=== PATIENT | female | born 1965 | race Caucasian/White ===

== ENCOUNTER 2017-11-08 13:40 | Inpatient (IN) | payer OTHER ==
[2017-11-08 14:20] LABS: ADD MAN DIFF? NO
[2017-11-08 14:25] LABS: BASOPHIL # 0.1 10^3/ul (0.0-0.1); BASOPHILS % 0.7 % (0.0-2.0); EOSINOPHILS % 0.1 % (0.0-7.0); HEMATOCRIT 28.4 % (37.0-47.0); HEMOGLOBIN 9.5 g/dl (12.0-16.0); LYMPHOCYTES # 0.9 10^3/ul (0.8-2.9); LYMPHOCYTES % 10.3 % (15.0-51.0); MEAN CORPUSCULAR HEMOGLOBIN 30.7 pg (29.0-33.0); MEAN CORPUSCULAR HGB CONC 33.5 g/dl (32.0-37.0); MEAN CORPUSCULAR VOLUME 91.9 fl (82.0-101.0); MONOCYTE # 0.5 10^3/ul (0.3-0.9); NEUTROPHIL # 7.4 10^3/ul (1.6-7.5); NEUTROPHILS % 82.6 % (39.0-77.0); PLATELET COUNT 180 10^3/UL (140-415); RED BLOOD COUNT 3.09 10^6/ul (4.20-5.40); RED CELL DISTRIBUTION WIDTH 12.7 % (11.5-14.5)
[2017-11-08 14:40] LABS: LACTIC ACID 1.5 mmol/L (0.5-2.0)
[2017-11-08 14:42] LABS: ALANINE AMINOTRANSFERASE 27 IU/L (13-69); ALBUMIN 3.9 g/dl (3.3-4.9); ALBUMIN/GLOBULIN RATIO 1.11; ALKALINE PHOSPHATASE 117 IU/L (42-121); ANION GAP 15 (8-16); ASPARTATE AMINO TRANSFERASE 26 IU/L (15-46); BILIRUBIN,INDIRECT 1.6 mg/dl (0-1.1); BILIRUBIN,TOTAL 1.6 mg/dl (0.2-1.3); BLOOD UREA NITROGEN 25 mg/dl (7-20); CALCIUM 8.9 mg/dl (8.4-10.2); CARBON DIOXIDE 24 mmol/L (21-31); CHLORIDE 104 mmol/L (97-110); CREATININE 1.45 mg/dl (0.44-1.00); GLUCOSE 161 mg/dl (70-220); POTASSIUM 4.6 mmol/L (3.5-5.1); SODIUM 138 mmol/L (135-144); TOTAL PROTEIN 7.4 g/dl (6.1-8.1)
[2017-11-08 14:44] LABS: INR 0.98; PROTIME 13.1 Sec (11.9-14.9)
[2017-11-08 14:45] LABS: PARTIAL THROMBOPLASTIN TIME 29.2 Sec (25.0-35.0)
[2017-11-08] MEDS: SODIUM CHLORIDE 0.9% 1L BAG IV* (14:46)
[2017-11-08 14:53] LABS: TROPONIN-I < 0.010 ng/ml (0.000-0.120)
[2017-11-08 15:34] LABS: ADD UMIC YES; UR ASCORBIC ACID NEGATIVE (NEGATIVE); UR BACTERIA MANY /HPF (NONE SEEN); UR BILIRUBIN (Dip) NEGATIVE (NEGATIVE); UR BLOOD (Dip) 1+ mg/dL (NEGATIVE); UR CLARITY TURBID (CLEAR); UR COLOR YELLOW (YELLOW); UR GLUCOSE (Dip) NEGATIVE (NEGATIVE); UR KETONES (Dip) NEGATIVE (NEGATIVE); UR LEUKOCYTE ESTERASE (Dip) 3+ Leu/ul (NEGATIVE); UR NITRITE (Dip) POSITIVE (NEGATIVE); UR NONSQUAMOUS EPITHELIAL CELL 1 /HPF (NONE SEEN); UR RBC 17 /HPF (0-5); UR SPECIFIC GRAVITY (Dip) 1.009 (1.003-1.030); UR SQUAMOUS EPITHELIAL CELL FEW /HPF (FEW); UR TOTAL PROTEIN (Dip) 2+ mg/dl (NEGATIVE); UR UROBILINOGEN (Dip) NEGATIVE (NEGATIVE); UR WBC > 182 /HPF (0-5)
[2017-11-08 16:40] LABS: LACTIC ACID 0.7 mmol/L (0.5-2.0)
[2017-11-08] MEDS: CEFEPIME 1GM/50 ML (PMX) 50 ML IVPB (16:41)
[2017-11-08] MEDS: FENTAnyl 50 MCG/ML VIAL IV (17:06)
[2017-11-08] MEDS: VANCOMYCIN 1 GM (PMX) 250 ML IVPB (17:27)
[2017-11-08 18:30] LABS: LACTIC ACID 1.2 mmol/L (0.5-2.0)
[2017-11-08] MEDS: ONDANSETRON 4 MG INJ IV (18:37)
[2017-11-08] MEDS: ACETAMINOPHEN 325 MG TAB PO (18:37)
[2017-11-08] MEDS: ALBUTEROL HFA 8 GM INHALER INH ×2 (19:00→23:00)
[2017-11-08] MEDS ORDERED: NACL 0.9% 3 ML SYG IV (19:00)
[2017-11-08] MEDS ORDERED: NITROGLYCERIN (SL) 0.4 MG TAB SL (19:00)
[2017-11-08] MEDS: SOD CHLORIDE 0.9% 1,000 ML IV (19:00)
[2017-11-08] MEDS ORDERED: hydrALAzine 20 MG INJ IV (19:00)
[2017-11-08] MEDS ORDERED: MAGNESIUM HYDROXIDE 30ML CUP PO (19:00)
[2017-11-08] MEDS ORDERED: VANCOMYCIN IV PER PHARMACY XX (19:00)
[2017-11-08] MEDS ORDERED: NA PHOSPHATE/BIPHOS 133 ML ENEMA PR (19:00)
[2017-11-08] MEDS ORDERED: LORAZEPAM 2 MG INJ IV (19:00)
[2017-11-08] MEDS ORDERED: morphine 2 MG INJ IV (19:00)
[2017-11-08] MEDS ORDERED: DOCUSATE SODIUM 100 MG CAP PO (19:00)
[2017-11-08 19:13] LABS: FREE T4 (FREE THYROXINE) 0.98 ng/dl (0.64-1.79)
[2017-11-08 20:07] LABS: PROTEIN/CREAT RATIO 2.28 RATIO
[2017-11-08 20:11] LABS: CREATININE,URINE RANDOM 56.54 mg/dl (20-320)
[2017-11-08 20:12] LABS: SODIUM,URINE RANDOM 83 mmol/L (30-90)
[2017-11-08] MEDS: HEPARIN 5,000 UNIT/0.5 ML VIAL SC (21:00)
[2017-11-08] MEDS: PIPER-TAZO 2.25 GM (PMX) 50 ML IVPB (21:10)
[2017-11-08 21:21] LABS: INR 1.15; PROTIME 14.9 Sec (11.9-14.9); PT RATIO 1.2
[2017-11-08 21:22] LABS: PARTIAL THROMBOPLASTIN TIME 31.1 Sec (25.0-35.0)
[2017-11-08] MEDS: PREGABALIN 75 MG CAP PO (22:26)
[2017-11-08] MEDS: MIDODRINE 5 MG TAB PO (22:30)
[2017-11-08] MEDS: INSULIN GLARGINE [LANTus] (100 UNITS/ML) SYG SC (22:30)
[2017-11-08] MEDS: CASPOFUNGIN 50 MG in SOD CHLORIDE 0.9% 250 ML IVPB (23:24)
[2017-11-09] MEDS ORDERED: PIPER-TAZO 3.375 GM IV (PMX) 100 ML IVPB
[2017-11-09] MEDS: PIPER-TAZO 2.25 GM (PMX) 50 ML IVPB ×5 (02:32→23:23)
[2017-11-09] MEDS: HYDROCODONE/APAP (5/325) TAB PO (02:38)
[2017-11-09] MEDS: ONDANSETRON 4 MG INJ IV ×2 (03:14→20:30)
[2017-11-09] MEDS: ALBUTEROL HFA 8 GM INHALER INH ×5 (03:55→23:23)
[2017-11-09] MEDS: PANTOPRAZOLE 40 MG INJ IV (06:16)
[2017-11-09] MEDS: SOD CHLORIDE 0.9% 1,000 ML IV ×2 (06:16→16:09)
[2017-11-09 06:33] LABS: ADD MAN DIFF? NO
[2017-11-09 06:35] LABS: WHITE BLOOD COUNT 5.6 10^3/ul (4.8-10.8)
[2017-11-09 06:35] LABS: ABNORMAL IP MESSAGE 1; BASOPHIL # 0.1 10^3/ul (0.0-0.1); BASOPHILS % 0.9 % (0.0-2.0); HEMATOCRIT 25.5 % (37.0-47.0); HEMOGLOBIN 8.4 g/dl (12.0-16.0); LYMPHOCYTES # 0.5 10^3/ul (0.8-2.9); LYMPHOCYTES % 8.4 % (15.0-51.0); MEAN CORPUSCULAR HEMOGLOBIN 30.8 pg (29.0-33.0); MEAN CORPUSCULAR HGB CONC 32.9 g/dl (32.0-37.0); MEAN CORPUSCULAR VOLUME 93.4 fl (82.0-101.0); MEAN PLATELET VOLUME 9.5 fl (7.4-10.4); MONOCYTE # 0.3 10^3/ul (0.3-0.9); MONOCYTES % 4.5 % (0.0-11.0); NEUTROPHIL # 4.8 10^3/ul (1.6-7.5); NEUTROPHILS % 85.7 % (39.0-77.0); PLATELET COUNT 157 10^3/UL (140-415); RED BLOOD COUNT 2.73 10^6/ul (4.20-5.40); RED CELL DISTRIBUTION WIDTH 12.9 % (11.5-14.5)
[2017-11-09 06:48] LABS: POSITIVE DIFF @See below
[2017-11-09 06:55] LABS: CHOLESTEROL 105 mg/dl (100-200); URIC ACID 4.6 mg/dl (3.1-7.9)
[2017-11-09 06:55] LABS: CHOL/HDL RATIO 2.5 RATIO; CREATINE KINASE 44 IU/L (23-200); HDL CHOLESTEROL 42 mg/dl (37-92); LDL CHOLESTEROL,CALCULATED 45 mg/dl; TRIGLYCERIDES 90 mg/dl (0-149)
[2017-11-09 07:23] LABS: HEMOGLOBIN A1C 11.1 % (0-5.9)
[2017-11-09 07:51] LABS: ANION GAP 10 (8-16); BLOOD UREA NITROGEN 21 mg/dl (7-20); CARBON DIOXIDE 19 mmol/L (21-31); CHLORIDE 115 mmol/L (97-110); CREATININE 1.25 mg/dl (0.44-1.00); GLUCOSE 145 mg/dl (70-220); PHOSPHORUS 3.3 mg/dl (2.5-4.9); SODIUM 140 mmol/L (135-144)
[2017-11-09 07:52] LABS: MAGNESIUM 0.9 mg/dl (1.7-2.5)
[2017-11-09] MEDS: ACETAMINOPHEN 325 MG TAB PO (08:11)
[2017-11-09] MEDS: MIRTAZAPINE 15 MG TAB PO (08:42)
[2017-11-09] MEDS: FERROUS SULFATE (EC) 325 MG TAB PO (08:43)
[2017-11-09] MEDS: HEPARIN 5,000 UNIT/0.5 ML VIAL SC ×2 (08:47→20:33)
[2017-11-09] MEDS: PREGABALIN 75 MG CAP PO ×2 (09:19→20:30)
[2017-11-09] MEDS: MAGNESIUM SULFATE 3 GM in DEXTROSE 5% 100 ML IVPB (09:56)
[2017-11-09] MEDS: INSULIN GLARGINE [LANTus] (100 UNITS/ML) SYG SC ×2 (10:51→20:33)
[2017-11-09] MEDS ORDERED: GLUCOSE GEL 15 GRAM TUBE BUCCAL (12:00)
[2017-11-09] MEDS ORDERED: GLUCOSE GEL 15 GRAM TUBE PO ×2 (12:00)
[2017-11-09] MEDS ORDERED: GLUCAGON 1 MG INJ IM (12:00)
[2017-11-09] MEDS ORDERED: DEXTROSE 50% 50 ML SYRINGE IV ×2 (12:00)
[2017-11-09] MEDS: INSULIN ASPART [NOVOLOG] 3 ML PEN SC ×3 (12:34→20:27)
[2017-11-09] MEDS: VORICONAZOLE 200 MG TAB PO (17:14)
[2017-11-09] MEDS ORDERED: D5W-0.45 NACL + KCL 10 MEQ 1,000 ML IV (18:30)
[2017-11-09] MEDS: D5W-0.45 NACL + KCL 10 MEQ 1,000 ML IV (20:30)
[2017-11-10] MEDS: VORICONAZOLE 200 MG TAB PO ×2 (01:06→08:34)
[2017-11-10] MEDS: ACCU-CHEK XX (02:00)
[2017-11-10] MEDS: ALBUTEROL HFA 8 GM INHALER INH ×6 (03:00→23:21)
[2017-11-10 05:54] LABS: WHITE BLOOD COUNT 3.7 10^3/ul (4.8-10.8)
[2017-11-10 05:54] LABS: MEAN CORPUSCULAR HEMOGLOBIN 30.5 pg (29.0-33.0); MEAN CORPUSCULAR HGB CONC 33.3 g/dl (32.0-37.0); MEAN CORPUSCULAR VOLUME 91.6 fl (82.0-101.0); MEAN PLATELET VOLUME 9.7 fl (7.4-10.4); PLATELET COUNT 141 10^3/UL (140-415); RED BLOOD COUNT 2.62 10^6/ul (4.20-5.40)
[2017-11-10] MEDS: PANTOPRAZOLE 40 MG INJ IV (06:01)
[2017-11-10] MEDS: PIPER-TAZO 2.25 GM (PMX) 50 ML IVPB ×4 (06:02→23:21)
[2017-11-10 06:12] LABS: ANION GAP 9 (8-16); BLOOD UREA NITROGEN 13 mg/dl (7-20); CALCIUM 8.2 mg/dl (8.4-10.2); CARBON DIOXIDE 19 mmol/L (21-31); CHLORIDE 116 mmol/L (97-110); CREATININE 1.33 mg/dl (0.44-1.00); GLUCOSE 89 mg/dl (70-220); POTASSIUM 3.6 mmol/L (3.5-5.1); SODIUM 140 mmol/L (135-144)
[2017-11-10 06:17] LABS: ADD MAN DIFF? YES; POSITIVE DIFF @See below
[2017-11-10 06:42] LABS: PHOSPHORUS 3.5 mg/dl (2.5-4.9)
[2017-11-10 06:42] LABS: MAGNESIUM 1.6 mg/dl (1.7-2.5)
[2017-11-10] MEDS: INSULIN ASPART [NOVOLOG] 3 ML PEN SC ×4 (07:55→21:00)
[2017-11-10] MEDS: D5W-0.45 NACL + KCL 10 MEQ 1,000 ML IV ×2 (08:34→21:00)
[2017-11-10] MEDS: MIRTAZAPINE 15 MG TAB PO (08:34)
[2017-11-10] MEDS: FERROUS SULFATE (EC) 325 MG TAB PO (08:34)
[2017-11-10] MEDS: ONDANSETRON 4 MG INJ IV (08:35)
[2017-11-10] MEDS: HEPARIN 5,000 UNIT/0.5 ML VIAL SC ×2 (08:38→21:11)
[2017-11-10] MEDS: ACETAMINOPHEN 325 MG TAB PO (08:40)
[2017-11-10] MEDS: PREGABALIN 75 MG CAP PO ×2 (08:57→21:09)
[2017-11-10 10:26] LABS: BAND NEUTROPHILS #M 0.8 10^3/ul (0.0-0.6); BAND NEUTROPHILS % (M) 24 % (0-4); EOSINOPHILS % (M) 1 % (0-7); LYMPHOCYTES #M 0.9 10^3/ul (0.8-2.9); LYMPHOCYTES % (M) 26 % (15-51); MONOCYTE #M 0.1 10^3/ul (0.3-0.9); MONOCYTES % (M) 5 % (0-11); PLATELET ESTIMATE NORMAL; REACTIVE LYMPHOCYTES% (M) 2 % (0-0); SEG NEUT #M 1.6 10^3/ul (1.6-7.5); SEGMENTED NEUTROPHILS (M) % 42 % (39-77); SMUDGE%M 17 % (0-0)
[2017-11-10] MEDS ORDERED: TRIMETHOBENZAMIDE 100 MG/ML VIAL IM (11:00)
[2017-11-10] MEDS ORDERED: ONDANSETRON INJ 8 MG in SOD CHLORIDE 0.9% 50 ML IV (11:30)
[2017-11-10] MEDS: MAGNESIUM SULFATE 2 GM/50 ML 50 ML IVPB (11:42)
[2017-11-10] MEDS ORDERED: ONDANSETRON 4 MG INJ IV (13:00)
[2017-11-10] MEDS ORDERED: VANCOMYCIN 750 MG in SOD CHLORIDE 0.9% 150 ML IVPB (17:00)
[2017-11-10] MEDS: INSULIN GLARGINE [LANTus] (100 UNITS/ML) SYG SC (21:11)
[2017-11-11] MEDS: ACCU-CHEK XX (02:00)
[2017-11-11] MEDS: ALBUTEROL HFA 8 GM INHALER INH ×6 (03:15→23:00)
[2017-11-11] MEDS: PANTOPRAZOLE 40 MG INJ IV (05:17)
[2017-11-11] MEDS: PIPER-TAZO 2.25 GM (PMX) 50 ML IVPB ×2 (05:17→11:47)
[2017-11-11] MEDS: HYDROCODONE/APAP (5/325) TAB PO (05:20)
[2017-11-11 06:40] LABS: ADD MAN DIFF? NO
[2017-11-11 06:42] LABS: BASOPHILS % 0.5 % (0.0-2.0); EOSINOPHILS # 0.1 10^3/ul (0.0-0.5); EOSINOPHILS % 2.3 % (0.0-7.0); HEMATOCRIT 23.7 % (37.0-47.0); HEMOGLOBIN 7.8 g/dl (12.0-16.0); LYMPHOCYTES # 1.6 10^3/ul (0.8-2.9); LYMPHOCYTES % 41.1 % (15.0-51.0); MEAN CORPUSCULAR HEMOGLOBIN 30.5 pg (29.0-33.0); MEAN CORPUSCULAR HGB CONC 32.9 g/dl (32.0-37.0); MEAN CORPUSCULAR VOLUME 92.6 fl (82.0-101.0); MEAN PLATELET VOLUME 9.6 fl (7.4-10.4); MONOCYTE # 0.4 10^3/ul (0.3-0.9); MONOCYTES % 10.7 % (0.0-11.0); NEUTROPHIL # 1.8 10^3/ul (1.6-7.5); NEUTROPHILS % 44.9 % (39.0-77.0); PLATELET COUNT 176 10^3/UL (140-415); RED BLOOD COUNT 2.56 10^6/ul (4.20-5.40); RED CELL DISTRIBUTION WIDTH 13.2 % (11.5-14.5)
[2017-11-11 06:42] LABS: WHITE BLOOD COUNT 3.9 10^3/ul (4.8-10.8)
[2017-11-11 07:11] LABS: MAGNESIUM 1.8 mg/dl (1.7-2.5)
[2017-11-11 07:11] LABS: PHOSPHORUS 3.4 mg/dl (2.5-4.9)
[2017-11-11 07:12] LABS: ANION GAP 11 (8-16); BLOOD UREA NITROGEN 9 mg/dl (7-20); CALCIUM 8.8 mg/dl (8.4-10.2); CARBON DIOXIDE 20 mmol/L (21-31); CHLORIDE 114 mmol/L (97-110); CREATININE 1.35 mg/dl (0.44-1.00); GLUCOSE 172 mg/dl (70-220); POTASSIUM 3.4 mmol/L (3.5-5.1); SODIUM 142 mmol/L (135-144)
[2017-11-11] MEDS: INSULIN ASPART [NOVOLOG] 3 ML PEN SC ×4 (07:53→20:55)
[2017-11-11] MEDS: MIRTAZAPINE 15 MG TAB PO (09:06)
[2017-11-11] MEDS: FERROUS SULFATE (EC) 325 MG TAB PO (09:06)
[2017-11-11] MEDS: INSULIN GLARGINE [LANTus] (100 UNITS/ML) SYG SC ×2 (09:09→20:44)
[2017-11-11] MEDS: HEPARIN 5,000 UNIT/0.5 ML VIAL SC ×2 (09:09→20:44)
[2017-11-11] MEDS: D5W-0.45 NACL + KCL 10 MEQ 1,000 ML IV ×2 (09:14→22:17)
[2017-11-11] MEDS: PREGABALIN 75 MG CAP PO (09:14)
[2017-11-11] MEDS: GUAIFENESIN 20 MG/ML 5ML CUP PO (11:47)
[2017-11-11] MEDS: CEPASTAT LOZENGE MT ×2 (13:24→19:44)
[2017-11-11] MEDS: ALBUTEROL/IPRATROPIUM (NEB) 3 ML AMP HHN (13:38)
[2017-11-11] MEDS ORDERED: morphine LIQ (10 MG/5 ML) CUP PO (16:30)
[2017-11-11] MEDS: LEVOFLOXACIN 500MG/D5W (PMX) 100 ML IVPB (18:30)
[2017-11-11] MEDS: ONDANSETRON 4 MG INJ IV (22:19)
[2017-11-12] MEDS: ACCU-CHEK XX (01:43)
[2017-11-12] MEDS: ALBUTEROL HFA 8 GM INHALER INH ×6 (03:00→23:00)
[2017-11-12] MEDS: PANTOPRAZOLE 40 MG INJ IV (05:27)
[2017-11-12 07:34] LABS: ADD MAN DIFF? NO
[2017-11-12 07:41] LABS: BASOPHILS % 0.7 % (0.0-2.0); EOSINOPHILS # 0.1 10^3/ul (0.0-0.5); HEMATOCRIT 22.1 % (37.0-47.0); HEMOGLOBIN 7.1 g/dl (12.0-16.0); MEAN CORPUSCULAR HEMOGLOBIN 30.3 pg (29.0-33.0); MEAN CORPUSCULAR HGB CONC 32.1 g/dl (32.0-37.0); MEAN CORPUSCULAR VOLUME 94.4 fl (82.0-101.0); MEAN PLATELET VOLUME 9.7 fl (7.4-10.4); MONOCYTE # 0.4 10^3/ul (0.3-0.9); MONOCYTES % 9.7 % (0.0-11.0); NEUTROPHIL # 1.9 10^3/ul (1.6-7.5); NEUTROPHILS % 42.1 % (39.0-77.0); PLATELET COUNT 165 10^3/UL (140-415); RED BLOOD COUNT 2.34 10^6/ul (4.20-5.40); RED CELL DISTRIBUTION WIDTH 13.6 % (11.5-14.5)
[2017-11-12 07:41] LABS: WHITE BLOOD COUNT 4.4 10^3/ul (4.8-10.8)
[2017-11-12 08:03] LABS: ANION GAP 10 (8-16); BLOOD UREA NITROGEN 11 mg/dl (7-20); CALCIUM 8.4 mg/dl (8.4-10.2); CARBON DIOXIDE 20 mmol/L (21-31); CHLORIDE 115 mmol/L (97-110); GLUCOSE 157 mg/dl (70-220); POTASSIUM 4.5 mmol/L (3.5-5.1); SODIUM 140 mmol/L (135-144)
[2017-11-12] MEDS: INSULIN ASPART [NOVOLOG] 3 ML PEN SC ×4 (08:38→20:35)
[2017-11-12] MEDS: PREGABALIN 75 MG CAP PO (08:40)
[2017-11-12] MEDS: FERROUS SULFATE (EC) 325 MG TAB PO (08:40)
[2017-11-12] MEDS: MIRTAZAPINE 15 MG TAB PO (08:40)
[2017-11-12] MEDS: HEPARIN 5,000 UNIT/0.5 ML VIAL SC ×2 (08:45→20:41)
[2017-11-12] MEDS: D5W-0.45 NACL + KCL 10 MEQ 1,000 ML IV ×2 (12:17→23:14)
[2017-11-12] MEDS: INSULIN GLARGINE [LANTus] (100 UNITS/ML) SYG SC ×2 (12:21→20:41)
[2017-11-12] MEDS: LEVOFLOXACIN 250MG/D5W (PMX) 50 ML IVPB (15:58)
[2017-11-12] MEDS: L ACIDOPHIL/B LACTIS/B LONGUM CAPSULE PO ×2 (15:58→23:15)
[2017-11-13 01:49] LABS: AHG CROSSMATCH 1 1
[2017-11-13] MEDS: ACCU-CHEK XX (02:00)
[2017-11-13] MEDS: SOD CHLORIDE 0.9% 250 ML IV* (02:03)
[2017-11-13] MEDS: ALBUTEROL HFA 8 GM INHALER INH ×4 (03:00→15:00)
[2017-11-13] MEDS: PANTOPRAZOLE 40 MG INJ IV (05:26)
[2017-11-13] MEDS: L ACIDOPHIL/B LACTIS/B LONGUM CAPSULE PO (08:12)
[2017-11-13] MEDS: MIRTAZAPINE 15 MG TAB PO (08:12)
[2017-11-13] MEDS: PREGABALIN 75 MG CAP PO (08:12)
[2017-11-13] MEDS: FERROUS SULFATE (EC) 325 MG TAB PO (08:12)
[2017-11-13 08:18] LABS: ADD MAN DIFF? NO; BASOPHILS % 0.8 % (0.0-2.0); EOSINOPHILS # 0.1 10^3/ul (0.0-0.5); EOSINOPHILS % 2.3 % (0.0-7.0); HEMATOCRIT 30.6 % (37.0-47.0); HEMOGLOBIN 9.7 g/dl (12.0-16.0); LYMPHOCYTES # 2.5 10^3/ul (0.8-2.9); LYMPHOCYTES % 47.5 % (15.0-51.0); MEAN CORPUSCULAR HEMOGLOBIN 29.7 pg (29.0-33.0); MEAN CORPUSCULAR HGB CONC 31.7 g/dl (32.0-37.0); MEAN CORPUSCULAR VOLUME 93.6 fl (82.0-101.0); MEAN PLATELET VOLUME 9.5 fl (7.4-10.4); MONOCYTE # 0.6 10^3/ul (0.3-0.9); MONOCYTES % 11.1 % (0.0-11.0); NEUTROPHILS % 37.9 % (39.0-77.0); PLATELET COUNT 182 10^3/UL (140-415); RED BLOOD COUNT 3.27 10^6/ul (4.20-5.40); RED CELL DISTRIBUTION WIDTH 13.3 % (11.5-14.5)
[2017-11-13 08:18] LABS: WHITE BLOOD COUNT 5.3 10^3/ul (4.8-10.8)
[2017-11-13 08:41] LABS: ANION GAP 10 (8-16); BLOOD UREA NITROGEN 11 mg/dl (7-20); CALCIUM 8.7 mg/dl (8.4-10.2); CARBON DIOXIDE 22 mmol/L (21-31); CHLORIDE 113 mmol/L (97-110); CREATININE 1.13 mg/dl (0.44-1.00); GLUCOSE 174 mg/dl (70-220); POTASSIUM 4.6 mmol/L (3.5-5.1); SODIUM 140 mmol/L (135-144)
[2017-11-13] MEDS: INSULIN GLARGINE [LANTus] (100 UNITS/ML) SYG SC (08:41)
[2017-11-13] MEDS: INSULIN ASPART [NOVOLOG] 3 ML PEN SC ×2 (08:42→11:52)
[2017-11-13] MEDS: HEPARIN 5,000 UNIT/0.5 ML VIAL SC (08:42)
[2017-11-13] MEDS: D5W-0.45 NACL + KCL 10 MEQ 1,000 ML IV (11:30)
[2017-11-13] MEDS: ACETAMINOPHEN 325 MG TAB PO (11:56)
[2017-11-13] MEDS: LOPERAMIDE 2 MG CAP PO (13:22)
== END 2017-11-13 16:41 | disposition home or self-care (01) | DRG 871 ==
LOC: TEL 18:07 → E/R 13:40 → TEL 11-09 21:14
PROVIDERS: Hospitalist
DX: A41.9 Sepsis, unspecified organism (principal); N17.0 Acute kidney failure with tubular necrosis; N39.0 Urinary tract infection, site not specified; E11.40 Type 2 diabetes mellitus with diabetic neuropathy, unspecified; J44.9 Chronic obstructive pulmonary disease, unspecified; I10 Essential (primary) hypertension; E78.5 Hyperlipidemia, unspecified; D64.9 Anemia, unspecified; E80.6 Other disorders of bilirubin metabolism; B96.4 Proteus (mirabilis) (morganii) as the cause of diseases classified elsewhere; Z85.3 Personal history of malignant neoplasm of breast; Z79.4 Long term (current) use of insulin
CPT/HCPCS: 36415; 36430; 71045; 76775; 80048; 80053; 80061; 81001; 81003; 82550; 82570; 82962; 83036; 83605; 83735; 84100; 84300; 84439; 84443; 84484; 84560; 85025; 85610; 85730; 86850; 86900; 86901; 86920; 87040; 87086; 89190; 92610; 93005; 94640; 96365; 96367; 97116; 97162; 99291-25

== ENCOUNTER 2018-01-12 12:15 | Emergency (ER) | payer OTHER ==
[2018-01-12] MEDS: IBUPROFEN 800 MG TAB PO (13:18)
== END 2018-01-12 13:39 | disposition home or self-care (01) ==
LOC: FTE 12:15
DX: M25.572 Pain in left ankle and joints of left foot (principal); J44.9 Chronic obstructive pulmonary disease, unspecified; J45.909 Unspecified asthma, uncomplicated; I10 Essential (primary) hypertension; E11.9 Type 2 diabetes mellitus without complications; Z79.4 Long term (current) use of insulin; Z85.3 Personal history of malignant neoplasm of breast
CPT/HCPCS: 73610; 99283-25

== ENCOUNTER 2018-02-24 06:25 | Emergency (ER) | payer OTHER ==
[2018-02-24 07:02] LABS: URINE BLOOD (Dip) POC 3+ (NEGATIVE); URINE GLUCOSE (Dip) POC Negative (NEGATIVE); URINE KETONES (Dip) POC Negative (NEGATIVE); URINE LEUKOCYTE EST (Dip) POC 2+ (NEGATIVE); URINE NITRITE (Dip) POC Negative (NEGATIVE); URINE TOTAL PROTEIN POC 3+ (NEGATIVE)
[2018-02-24] MEDS: CEFTRIAXONE 1 GM/50 ML (PMX) 50 ML IVPB (07:25)
[2018-02-24] MEDS: PHENAZOPYRIDINE 100 MG TAB PO (07:26)
[2018-02-24] MEDS: SOD CHLORIDE 0.9% 1,000 ML IV (07:26)
[2018-02-24 07:34] LABS: ADD MAN DIFF? NO
[2018-02-24 07:36] LABS: BASOPHIL # 0.1 10^3/ul (0.0-0.1); BASOPHILS % 1.1 % (0.0-2.0); EOSINOPHILS # 0.2 10^3/ul (0.0-0.5); EOSINOPHILS % 2.4 % (0.0-7.0); HEMATOCRIT 29.4 % (37.0-47.0); LYMPHOCYTES # 2.2 10^3/ul (0.8-2.9); LYMPHOCYTES % 27.2 % (15.0-51.0); MEAN CORPUSCULAR HEMOGLOBIN 31.4 pg (29.0-33.0); MEAN CORPUSCULAR VOLUME 92.5 fl (82.0-101.0); MONOCYTE # 0.8 10^3/ul (0.3-0.9); MONOCYTES % 9.5 % (0.0-11.0); NEUTROPHIL # 4.7 10^3/ul (1.6-7.5); NEUTROPHILS % 59.4 % (39.0-77.0); PLATELET COUNT 228 10^3/UL (140-415); RED BLOOD COUNT 3.18 10^6/ul (4.20-5.40); RED CELL DISTRIBUTION WIDTH 11.8 % (11.5-14.5)
[2018-02-24 07:57] LABS: ALANINE AMINOTRANSFERASE 27 IU/L (13-69); ALBUMIN 4.1 g/dl (3.3-4.9); ALBUMIN/GLOBULIN RATIO 1.41; ALKALINE PHOSPHATASE 93 IU/L (42-121); ANION GAP 12 (5-13); ASPARTATE AMINO TRANSFERASE 22 IU/L (15-46); BILIRUBIN,INDIRECT 0.5 mg/dl (0-1.1); BILIRUBIN,TOTAL 0.5 mg/dl (0.2-1.3); BLOOD UREA NITROGEN 23 mg/dl (7-20); CALCIUM 9.2 mg/dl (8.4-10.2); CARBON DIOXIDE 26 mmol/L (21-31); CHLORIDE 106 mmol/L (97-110); CREATININE 1.77 mg/dl (0.44-1.00); Estimated GFR 30 mL/min (>60); GLUCOSE 133 mg/dl (70-220); POTASSIUM 4.1 mmol/L (3.5-5.1); SODIUM 144 mmol/L (135-144)
[2018-02-24 08:42] LABS: LACTIC ACID 0.9 mmol/L (0.5-2.0)
[2018-02-24] MEDS: ACETAMINOPHEN 325 MG TAB PO (09:16)
== END 2018-02-24 09:50 | disposition home or self-care (01) ==
LOC: FTE 06:25
DX: N12 Tubulo-interstitial nephritis, not specified as acute or chronic (principal); R40.2412 Glasgow coma scale score 13-15, at arrival to emergency department; J44.9 Chronic obstructive pulmonary disease, unspecified; E11.9 Type 2 diabetes mellitus without complications; I10 Essential (primary) hypertension; J45.909 Unspecified asthma, uncomplicated; Z79.4 Long term (current) use of insulin
CPT/HCPCS: 36415; 80053; 81003; 81025; 83605; 85025; 87040; 87086; 96361; 96365; 99284-25

== ENCOUNTER 2018-08-19 15:20 | Emergency (ER) | payer OTHER ==
[2018-08-19 16:16] LABS: URINE PH (Dip) POC 5.5 (5.0-8.5)
[2018-08-19 16:16] LABS: URINE BLOOD (Dip) POC 2+ (NEGATIVE); URINE GLUCOSE (Dip) POC Negative (NEGATIVE); URINE KETONES (Dip) POC Negative (NEGATIVE); URINE LEUKOCYTE EST (Dip) POC 3+ (NEGATIVE); URINE NITRITE (Dip) POC Negative (NEGATIVE); URINE TOTAL PROTEIN POC 1+ (NEGATIVE)
[2018-08-19] MEDS: ACETAMINOPHEN 500 MG TAB PO (16:25)
== END 2018-08-19 18:03 | disposition home or self-care (01) ==
LOC: FTE 15:20
DX: M25.572 Pain in left ankle and joints of left foot (principal); N39.0 Urinary tract infection, site not specified; E11.9 Type 2 diabetes mellitus without complications; I10 Essential (primary) hypertension; J44.9 Chronic obstructive pulmonary disease, unspecified; Z79.4 Long term (current) use of insulin
CPT/HCPCS: 73610; 81003; 81025; 99283-25

== ENCOUNTER 2018-08-21 17:38 | Emergency (ER) | payer OTHER ==
[2018-08-21] MEDS: HYDROCODONE/APAP (5/325) TAB PO (18:27)
== END 2018-08-21 22:17 | disposition home or self-care (01) ==
LOC: FTE 17:38
DX: S92.025A Nondisplaced fracture of anterior process of left calcaneus, initial encounter for closed fracture (principal); E11.9 Type 2 diabetes mellitus without complications; I10 Essential (primary) hypertension; J44.9 Chronic obstructive pulmonary disease, unspecified; W01.0XXA Fall on same level from slipping, tripping and stumbling without subsequent striking against object, initial encounter; Y92.9 Unspecified place or not applicable; Z79.4 Long term (current) use of insulin
CPT/HCPCS: 29505; 73610; 93971; 99284-25

== ENCOUNTER 2018-09-30 21:21 | Emergency (ER) | payer OTHER ==
[2018-09-30 21:49] LABS: ADD MAN DIFF? NO; BASOPHIL # 0.2 10^3/ul (0.0-0.1); BASOPHILS % 1.6 % (0.0-2.0); EOSINOPHILS # 0.5 10^3/ul (0.0-0.5); EOSINOPHILS % 5.3 % (0.0-7.0); HEMATOCRIT 28.6 % (37.0-47.0); HEMOGLOBIN 9.6 g/dl (12.0-16.0); LYMPHOCYTES # 4.4 10^3/ul (0.8-2.9); LYMPHOCYTES % 46.9 % (15.0-51.0); MEAN CORPUSCULAR HEMOGLOBIN 30.2 pg (29.0-33.0); MEAN CORPUSCULAR HGB CONC 33.6 g/dl (32.0-37.0); MEAN CORPUSCULAR VOLUME 89.9 fl (82.0-101.0); MEAN PLATELET VOLUME 8.9 fl (7.4-10.4); MONOCYTE # 0.7 10^3/ul (0.3-0.9); MONOCYTES % 7.3 % (0.0-11.0); NEUTROPHIL # 3.6 10^3/ul (1.6-7.5); NEUTROPHILS % 38.7 % (39.0-77.0); PLATELET COUNT 232 10^3/UL (140-415); RED BLOOD COUNT 3.18 10^6/ul (4.20-5.40)
[2018-09-30 21:49] LABS: WHITE BLOOD COUNT 9.3 10^3/ul (4.8-10.8)
[2018-09-30 22:09] LABS: INR 0.97; PARTIAL THROMBOPLASTIN TIME 28.9 Sec (23.0-35.0)
[2018-09-30 22:16] LABS: ALANINE AMINOTRANSFERASE 23 IU/L (13-69); ALBUMIN 4.1 g/dl (3.3-4.9); ALBUMIN/GLOBULIN RATIO 1.13; ALKALINE PHOSPHATASE 128 IU/L (42-121); ANION GAP 7 (5-13); ASPARTATE AMINO TRANSFERASE 26 IU/L (15-46); BILIRUBIN,INDIRECT 0.5 mg/dl (0-1.1); BILIRUBIN,TOTAL 0.5 mg/dl (0.2-1.3); BLOOD UREA NITROGEN 25 mg/dl (7-20); CARBON DIOXIDE 25 mmol/L (21-31); CHLORIDE 108 mmol/L (97-110); CREATININE 1.34 mg/dl (0.44-1.00); Estimated GFR 41 mL/min (>60); GLUCOSE 260 mg/dl (70-220); POTASSIUM 3.9 mmol/L (3.5-5.1); SODIUM 140 mmol/L (135-144); TOTAL PROTEIN 7.7 g/dl (6.1-8.1)
[2018-09-30 22:27] LABS: TROPONIN-I < 0.012 ng/ml (0.000-0.120)
== END 2018-09-30 23:05 | disposition home or self-care (01) ==
LOC: E/R 21:21
DX: D64.9 Anemia, unspecified (principal); I10 Essential (primary) hypertension; E11.9 Type 2 diabetes mellitus without complications; J44.1 Chronic obstructive pulmonary disease with (acute) exacerbation; Z79.4 Long term (current) use of insulin
CPT/HCPCS: 36415; 80053; 84484; 85025; 85610; 85730; 86850; 86900; 86901; 93005; 99284-25

== ENCOUNTER 2018-11-04 12:46 | Day surgery (SDC) | payer OTHER ==
[2018-11-04] MEDS ORDERED: FENTAnyl 50 MCG/ML VIAL (14:24)
[2018-11-04] MEDS ORDERED: ROCURONIUM 50 MG INJ (14:24)
[2018-11-04] MEDS ORDERED: CEFAZOLIN 1 GM INJ (14:24)
[2018-11-04] MEDS ORDERED: MIDAZOLAM 1 MG/ML 2 ML INJ (14:24)
[2018-11-04] MEDS ORDERED: ROPIVACAINE 0.2% 20 ML VIAL (14:24)
[2018-11-04] MEDS ORDERED: PROPOFOL 20 ML (14:24)
[2018-11-04] MEDS ORDERED: BUPIVACAINE 0.5% (SDV) 30 ML INJ (14:44)
[2018-11-04] MEDS ORDERED: SUGAMMADEX SODIUM 200 MG/2 ML VIAL IV (15:59)
[2018-11-04] MEDS ORDERED: METOCLOPRAMIDE 10 MG INJ (15:59)
[2018-11-04] MEDS ORDERED: DEXAMETHASONE 4 MG/ML 5 ML INJ (15:59)
[2018-11-04] MEDS ORDERED: ONDANSETRON 4 MG INJ (15:59)
[2018-11-04] MEDS ORDERED: DEXTROSE 50% 50 ML SYRINGE (16:36)
[2018-11-04] MEDS: DEXTROSE 50% 50 ML SYRINGE IV (16:44)
[2018-11-04] MEDS ORDERED: HYDROmorphONE 1 MG/5 ML IV SYRINGE IV (16:54)
[2018-11-04] MEDS ORDERED: LABETALOL HCL 20MG INJ IV (17:00)
[2018-11-04] MEDS ORDERED: hydrALAzine 20 MG INJ IV (17:00)
[2018-11-04] MEDS ORDERED: EPHEDrine 25 MG/5 ML SYG IV (17:00)
[2018-11-04] MEDS: HYDROmorphONE 1 MG/5 ML IV SYRINGE IV ×2 (17:01→17:18)
[2018-11-04] MEDS: FENTAnyl 50 MCG/ML VIAL IV ×2 (17:07→17:18)
[2018-11-04] MEDS: ONDANSETRON 4 MG INJ IV (17:07)
[2018-11-04] MEDS: OXYCODONE/ACETAMINOPHEN (5/325) TAB PO (17:07)
== END 2018-11-04 18:00 | disposition home or self-care (01) ==
LOC: SDS 12:46
DX: S92.002A Unspecified fracture of left calcaneus, initial encounter for closed fracture (principal); I12.9 Hypertensive chronic kidney disease with stage 1 through stage 4 chronic kidney disease, or unspecified chronic kidney disease; N18.2 Chronic kidney disease, stage 2 (mild); E11.51 Type 2 diabetes mellitus with diabetic peripheral angiopathy without gangrene; E11.42 Type 2 diabetes mellitus with diabetic polyneuropathy; E11.22 Type 2 diabetes mellitus with diabetic chronic kidney disease; X58.XXXA Exposure to other specified factors, initial encounter
CPT/HCPCS: 28300; 73630-LT; 73650-LT; 82962; 84703

== ENCOUNTER 2018-11-09 15:54 | Emergency (ER) | payer OTHER | END 2018-11-10 00:18 | disposition home or self-care (01) | LOC: E/R 11-10 00:18 | DX: S99.912A Unspecified injury of left ankle, initial encounter (principal); I10 Essential (primary) hypertension; W18.39XA Other fall on same level, initial encounter; Y92.89 Other specified places as the place of occurrence of the external cause; Z79.4 Long term (current) use of insulin | CPT/HCPCS: 73610; 99283-25 ==